=== PATIENT | male | born 1965 | race Caucasian/White ===

== ENCOUNTER 2024-08-11 15:45 | Outpatient (AMB) | payer OTHER, SELFPAY ==
--- NOTE | 2024-08-11 15:57 | MHC.PC.OV ---
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 Wants to discuss going back on sertraline 50mg. Hasn't been on medication since 2018. Respiratory Therapist Assistant Required: No Allergies No Known Allergies Allergy (Verified 08/11/24 16:01) Tobacco use date assessed: 08/11/24 Dental Screening Dental Screen Date: 08/11/24 Did you have a dental visit in the last 12 months?: Yes Did you have a dental problem in the last 6 months where you did not have access to dental care?: No Was dental information given to patient?: Patient has dentist HPI HPI Comments History of Present Illness Details This is a 58-year-old male with a past medical history of hypertension and obesity presenting to [facility] care. He is an ER follow up. Patient was seen at [facility] 07/10/2024 after he woke up feeling weak and having brain fog. He also reported right foot numbness on the sole which resolved. His blood pressure was 174/92. He has been treated for hypertension in the past but was not on any medications at the time. Diagnostics included negative COVID/flu/RSV swab, glucose mildly elevated at 134, ALT elevated at 47, AST normal at 37, urine negative for infection, negative troponin, positive urine cannabinoid screen, additional U tox results negative, normal electrolytes, CTA head and neck demonstrating no acute pathology and mild cervical spondylosis, negative CT head, negative chest x-ray and nonischemic EKG. Patient was discharged home after symptoms improved. He is now on lisinopril 40 mg. His blood pressure is normal today. He has been monitoring with a home blood pressure cuff which shows systolic reading is about 10 points higher than our cuff. He denies side effects on the medication. He quit smoking 10 years ago. He has decreasing sodium in his diet and caffeine. He wishes to restart Zoloft which he takes for anxiety. He has a history of panic attacks. Says he initially presented with dizzy spells. He denies current dizzy spells. He is under some stress with his job. He had no side effects on the medication. He does not feel depressed. Denies SI or HI. ROS: Constitutional: No unexplained weight loss, fever, chills, fatigue or night sweats. Eyes: No vision changes, blurry vision, double vision, eye pain, eye redness, eye discharge. ENT: No hearing loss, sneezing, congestion, runny nose or sore throat. Respiratory: No shortness of breath, cough or sputum production. Cardiovascular: No chest pain, chest pressure or chest discomfort. No palpitations or pedal edema. Gastrointestinal: No anorexia, nausea, vomiting or diarrhea. No abdominal pain or blood in stool. Genitourinary: No dysuria, hematuria, urinary frequency. Neurologic: No headache, dizziness, syncope, unilateral weakness, ataxia, numbness or tingling in the extremities. Hematologic/Lymphatics: No bleeding or bruising Skin: No rash. Endocrine: No cold or heat intolerance. No polyuria or polydipsia. Psychiatric: See HPI Physical exam: Constitutional: Alert, in no distress. Eyes: Pupils are equal, round and reactive to light. Extraocular muscles intact. Neck: Supple, Full range of motion. No lymphadenopathy. No palpable thyroid masses. Respiratory: Clear to auscultation. Cardiovascular: S1 S2 regular. No murmurs. . Neurologic: No focal neurological deficits. Extremities: Warm and well perfused. No clubbing, cyanosis or edema. 3+ peripheral pulses bilaterally. 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 1. Little interest or pleasure in doing things: not at all 2. Feeling down, depressed, or hopeless: not at all 3. Trouble falling or staying asleep, or sleeping too much: several days 4. Feeling tired or having little energy: several days 5. Poor appetite or overeating: not at all 6. Feeling bad about yourself - or that you are a failure or have let yourself or your family down: not at all 7. Trouble concentrating on things, such as reading the newspaper or watching television: not at all 8. Moving or speaking so slowly that other people could have noticed. Or the opposite - being so fidgety or restless that you have been moving around a lot more than usual: not at all 9. Thoughts that you would be better off or of hurting yourself in some way: not at all Total score: 2 Depression Screening Interpretation: Negative Depression Screening Done: Yes Source: Developed by Drs. Alex Vasquez, Keira Chacon, Cody Burks and colleagues, with an educational félix from [employer]. Thrive Questionnaire I am a: Patient What is your living situation today?: I have a steady place to live Within the past 12 months, did the food you bought not last and you didn't have the money to get more?: Never true Within the past 12 months, did you worry whether your food would run out before you got money to buy more?: Never true Do you have trouble paying for medicines?: No Do you have trouble getting transportation to medical appointments?: No Do you have trouble paying your heating and electricity bill?: No Do you have trouble taking care of your child, family member or friend?: No Do you have trouble with day-to-day activities such as bathing, preparing meals, shopping, managing finances, etc.?: No Are you currently unemployed and looking for a job?: No Are you interested in more education?: No Please select the resources that you would like help with: None Currently or been in a relationship where the following occur: No concerns reported THRIVE Score: 0 AUDIT C Alcohol Use Questionnaire (AUDIT-C) 1. How often do you have a drink containing alcohol?: 4 or more times a week 2. How many drinks containing alcohol do you have on a typical day when you are drinking?: 3 or 4 3. How often do you have six or more drinks on one occasion?: Less than monthly Total Score: 6 SALIMA-7 AMB Questionnaire SALIMA-7 Feeling nervous, anxious, or on edge: 1 = Several days Not being able to stop or control worryin = Several days Worrying too much about different things: 1 = Several days Trouble relaxin = Not at all Being so restless that it is hard to sit still: 0 = Not at all Becoming easily annoyed or irritable: 1 = Several days Feeling afraid as if something awful might happen: 0 = Not at all Total SALIMA-7 score (0-4 normal; 5-9 mild; 10-14 moderate; 15-21 severe): 4 Source: Developed by Drs. Alex Vasquez, Keira Chacon, Cody Burks and colleagues, with an educational félix from [employer]. Physical exam (Primary Care) Vital Signs: Last Vital Signs Pulse 70 08/11/24 16:09 BP 128/78 08/11/24 16:09 Pulse Ox 96 08/11/24 16:09 Oxygen Delivery Method Room Air 08/11/24 16:09 BMI result Body Mass Index 29.7 Tobacco/Smoking Status: Tobacco use Status Tobacco use date assessed 08/11/24 08/11/24 16:17 Patient Tobacco Use Status Former Tobacco user 08/11/24 16:17 Tobacco use type Cigarette 08/11/24 16:17 e-Cigarette/Vaping Use Never Used 08/11/24 16:17 PHQ-9: PHQ-9 Score PHQ-9: Total score 2 08/11/24 16:41 Depression Screening Interpretation: Negative Currently or been in a relationship where the following occur: No concerns reported Coding Level of Care Code New Pt Level 5 (91507) Complex EM visit Add On G2211 Diagnoses Essential hypertension I10 Anxiety F41.9 IFG (impaired fasting glucose) R73.01 Elevated liver enzymes R74.8 Time Spent (min) 60 Comment Reviewing records, completing documentation, direct patient care Assessment & Plan Assessment & Plan (1) Essential hypertension: Code(s): I10 - Essential (primary) hypertension Category: Medical Plan: Patient seen for episode of brain fog and weakness at ED. ER workup reassuring. He was found to be hypertensive. Now controlled. Continue lisinopril 40 mg. Recommended low-sodium diet, avoidance of caffeine and exercise to promote weight loss. (2) Anxiety: Code(s): F41.9 - Anxiety disorder, unspecified Category: Medical Plan: Declines referral to Psychology. Restart Zoloft 25 mg for the 1st week then increase to 50 mg. Black box warning, administration and side effects reviewed. (3) IFG (impaired fasting glucose): Code(s): R73.01 - Impaired fasting glucose Category: Medical Plan: Check hemoglobin A1c. Recommended low carb, low sugar diet and encouraged weight loss. (4) Elevated liver enzymes: Code(s): R74.8 - Abnormal levels of other serum enzymes Category: Medical Plan: Avoid alcohol. Follow low-cholesterol diet. Recheck liver enzymes. Plan Follow up in 6 weeks for anxiety medication check in annual physical exam. He will have fasting lab orders completed prior to this. He was instructed to call once he has the orders done at [facility] so we can request the records. Orders: Orders Prostate Specific Antigen 08/11/24 I10 - Essential (primary) hypertension, R73.01 - Impaired fasting glucose, R74.8 - Abnormal levels of other serum enzymes, Z12.5 - Encounter for screening for malignant neoplasm of prostate TSH reflex Free T4 08/11/24 I10 - Essential (primary) hypertension, R73.01 - Impaired fasting glucose, R74.8 - Abnormal levels of other serum enzymes Hemoglobin A1c 08/11/24 E11.9 - Type 2 diabetes mellitus without complications, I10 - Essential (primary) hypertension, R73.01 - Impaired fasting glucose, R74.8 - Abnormal levels of other serum enzymes Lipid Panel 08/11/24 I10 - Essential (primary) hypertension, R73.01 - Impaired fasting glucose, R74.8 - Abnormal levels of other serum enzymes Comprehensive Met. Panel 08/11/24 I10 - Essential (primary) hypertension, R73.01 - Impaired fasting glucose, R74.8 - Abnormal levels of other serum enzymes Complete Blood Count no Diff 08/11/24 I10 - Essential (primary) hypertension, R73.01 - Impaired fasting glucose, R74.8 - Abnormal levels of other serum enzymes Medications: New sertraline (Zoloft) 50 mg PO DAILY 90 tabs 3RF lisinopril 40 mg PO DAILY 90 tabs 3RF Patient Instructions: Start Zoloft - take 1/2 tablet for the first week and then increase to 1 tab daily. Continue Lisinopril 40 mg daily. Please have fasting labs done, Bring orders with you to [facility].
[2024-08-11 16:09] VITALS: BP 128/78; PULSE 70; O2SAT 96; BMI 29.7
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
== END 2024-08-11 16:53 | disposition home or self-care (01) ==
PROVIDERS: PCP Physician Assistant Medical; Visit Provider Physician Assistant Medical
DX: I10 Essential (primary) hypertension (principal); F41.9 Anxiety disorder, unspecified; R73.01 Impaired fasting glucose; R74.8 Abnormal levels of other serum enzymes

== ENCOUNTER 2024-11-13 11:51 | Outpatient (AMB) | payer OTHER, SELFPAY ==
--- NOTE | 2024-11-13 11:56 | MHC.PC.OV ---
Vital Signs 11/13/24 12:05 Height 5 ft 8 in Weight 185 lb BMI 28.1 BP 106/68 Blood Pressure Location Rt brachial Position Sitting Respiration 14 Pulse 72 Pulse Source Pulse Oximeter Temp 98.4 F Temp Source Temporal Artery Scan Pulse Oximetry (%) 95 Oxygen Delivery Method Room Air Intake Visit Reasons: cpe Intake Note: Derick presents in the office today for his annual physical. Allergies Seasonal Allergies Allergy (Mild, Verified 11/13/24 11:59) Runny nose and sinus congestion Tobacco use date assessed: 11/13/24 Dental Screening Dental Screen Date: 11/13/24 Did you have a dental visit in the last 12 months?: Yes Did you have a dental problem in the last 6 months where you did not have access to dental care?: No Was dental information given to patient?: Patient has dentist HPI HPI Comments History of Present Illness Details This is a 58-year-old male with a past medical history of hypertension and obesity presenting for a physical exam. Prediabetes-recent diagnosis. Hemoglobin A1c 5.9%. Since his last visit the patient already decrease carbohydrates and alcohol, and he has lost weight. He denies family history of type 2 diabetes. Brlbuwxewcpw-aoyf-fbziptdeyo on lisinopril 40 mg daily. Quit smoking more than 5 years ago. ASCVD risk score 4.3% based on recent labs and vitals today. Lugrkjb-yloe-ltztwojwhz on sertraline 50 mg daily. LFTs normalized since ER visit. Colonoscopy: declined. Never had one. Agreeable to Cologuard. UTD and eye and dental exams. He did not receive the flu vaccine. Recommended Tdap, Shingrix and pneumonia vaccine. Patient deferred today, but he asked that I remind him at his next visit. ROS: Constitutional: No unexplained weight loss, fever, chills, fatigue or night sweats. Eyes: No vision changes, blurry vision, double vision, eye pain, eye redness, eye discharge. ENT: No hearing loss, sneezing, congestion, runny nose or sore throat. Respiratory: No shortness of breath, cough or sputum production. Cardiovascular: No chest pain, chest pressure or chest discomfort. No palpitations or pedal edema. Gastrointestinal: No anorexia, nausea, vomiting or diarrhea. No abdominal pain or blood in stool. Genitourinary: No dysuria, hematuria, urinary frequency. Denies testicular pain, masses, urethral discharge. Neurologic: No headache, dizziness, syncope, unilateral weakness, ataxia, numbness or tingling in the extremities. Musculoskeletal: No muscle pain, back pain, joint pain or swelling. Hematologic/Lymphatics: No bleeding or bruising. No painful lymph nodes. Skin: No rash or itching. Endocrine: No cold or heat intolerance. No polyuria or polydipsia. Psychiatric: No depression.. No SI/HI. see HPI Physical exam: Constitutional: Alert, in no distress. Head: Normocephalic. Eyes: Pupils are equal, round and reactive to light. Extraocular muscles intact. Ear, Nose and Throat: Canals clear. TMs normal. Normal nasal mucosa. No nasal discharge. No oral lesions. Neck: Supple, Full range of motion. No lymphadenopathy. No palpable thyroid masses. Respiratory: Clear to auscultation. Cardiovascular: S1 S2 regular. No murmurs. No carotid bruits. Gastrointestinal: Abdomen soft, non-tender, non-distended. Normal bowel sounds. No palpable masses. Genitourinary: Patient declined exam. Neurologic: No focal neurological deficits. Symmetric patellar reflexes. Moves all extremities spontaneously. Sensation intact bilaterally. Skin: No rashes Musculoskeletal: No gross deformities. Normal range of motion. Extremities: Warm and well perfused. No clubbing, cyanosis or edema. Intact upper and lower extremity peripheral pulses. Psychiatric: Normal mood and affect [facility] Medical History (Updated 11/13/24 @ 13:42 by PEGGY Tilley) Routine physical examination Prediabetes Panic attack Anxiety IFG (impaired fasting glucose) Elevated liver enzymes Essential hypertension Family History (Updated 11/13/24 @ 12:00 by Christel Motley MA) Brother FHx: mental illness Other Substance abuse Social History (Updated 11/13/24 @ 12:01 by Christel Motley MA) Housing: House (two family house with brother) Alcohol intake: current Patient Tobacco Use Status: Former Tobacco user Tobacco use type: Cigarette Cigarettes Per Day: 3 Years Smoked: 46 e-Cigarette/Vaping Use: Never Used Second Hand Smoke Exposure: No Substance Use Type: Marijuana service: Yes Current occupational status: employed 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 1. Little interest or pleasure in doing things: not at all 2. Feeling down, depressed, or hopeless: not at all 3. Trouble falling or staying asleep, or sleeping too much: several days 4. Feeling tired or having little energy: not at all 5. Poor appetite or overeating: not at all 6. Feeling bad about yourself - or that you are a failure or have let yourself or your family down: not at all 7. Trouble concentrating on things, such as reading the newspaper or watching television: not at all 8. Moving or speaking so slowly that other people could have noticed. Or the opposite - being so fidgety or restless that you have been moving around a lot more than usual: not at all 9. Thoughts that you would be better off or of hurting yourself in some way: not at all Total score: 1 Depression Screening Interpretation: Negative Depression Screening Done: Yes 28514 - PHQ-9 Billing: Patient declined-do not bill Source: Developed by Drs. Alex Vasquez, Keira Chacon, Cody Burks and colleagues, with an educational félix from [employer]. Thrive Questionnaire Date Thrive assessed: 11/13/24 I am a: Patient What is your living situation today?: I have a steady place to live Within the past 12 months, did the food you bought not last and you didn't have the money to get more?: Never true Within the past 12 months, did you worry whether your food would run out before you got money to buy more?: Never true Do you have trouble paying for medicines?: No Do you have trouble getting transportation to medical appointments?: No Do you have trouble paying your heating and electricity bill?: No Do you have trouble taking care of your child, family member or friend?: No Do you have trouble with day-to-day activities such as bathing, preparing meals, shopping, managing finances, etc.?: No Are you currently unemployed and looking for a job?: No Are you interested in more education?: No Please select the resources that you would like help with: None Currently or been in a relationship where the following occur: No concerns reported THRIVE Score: 0 AUDIT C Alcohol Use Questionnaire (AUDIT-C) 1. How often do you have a drink containing alcohol?: 2-4 times a month 2. How many drinks containing alcohol do you have on a typical day when you are drinking?: 1 or 2 3. How often do you have six or more drinks on one occasion?: Never Total Score: 2 Score Reviewed/Action Taken: No SALIMA-7 AMB Questionnaire SALIMA-7 Date SALIMA - 7 assessed: 11/13/24 Feeling nervous, anxious, or on edge: 0 = Not at all Not being able to stop or control worryin = Not at all Worrying too much about different things: 1 = Several days Trouble relaxin = Not at all Being so restless that it is hard to sit still: 0 = Not at all Becoming easily annoyed or irritable: 1 = Several days Feeling afraid as if something awful might happen: 0 = Not at all Total SALIMA-7 score (0-4 normal; 5-9 mild; 10-14 moderate; 15-21 severe): 2 Source: Developed by Drs. Alex Vasquez, Keira Chacon, Cody Burks and colleagues, with an educational félix from [employer]. SALIMA-7 Assessment Billing SALIMA-7 Assessment Tool: SALIMA-7 Assessment 09340 ACT Questionnaire In the past 4 weeks, how much of the time did your asthma keep you from getting as much done at work, school or at home?: None of the time Score: 5 Physical exam (Primary Care) Vital Signs: Last Vital Signs Temp 98.4 F 11/13/24 12:05 Pulse 72 11/13/24 12:05 Resp 14 11/13/24 12:05 BP 106/68 11/13/24 12:05 Pulse Ox 95 11/13/24 12:05 Oxygen Delivery Method Room Air 11/13/24 12:05 BMI result Body Mass Index 28.1 Tobacco/Smoking Status: Tobacco use Status Tobacco use date assessed 11/13/24 11/13/24 11:58 Patient Tobacco Use Status Former Tobacco user 11/13/24 12:01 Tobacco use type Cigarette 11/13/24 12:01 e-Cigarette/Vaping Use Never Used 11/13/24 12:01 PHQ-9: PHQ-9 Score PHQ-9: Total score 1 11/13/24 12:08 Depression Screening Interpretation: Negative Thrive Assessment: Date of Thrive Assessment Date Thrive assessed 11/13/24 11/13/24 12:08 Currently or been in a relationship where the following occur: No concerns reported Coding Level of Care Code Est Pt Prev Care 40-64y(28961) Diagnoses Routine physical examination Z00.00 Essential hypertension I10 Anxiety F41.9 Prediabetes R73.03 Additional Codes SALIMA-7 Assessment Billing - SALIMA-7 Assessment Tool: SALIMA-7 Assessment 85996 ([id number]) Assessment & Plan Assessment & Plan (1) Routine physical examination: Code(s): Z00.00 - Encounter for general adult medical examination without abnormal findings Category: Medical Plan: Patient is seen today for a routine physical. As part of this visit we reviewed the following issues, which are considered and essential part of preventative health in this age group: - Screening for colon cancer - Nutritional and exercise counseling - Counseling of injury prevention including fire prevention, smoke alarms and seat belt usage - Screening for depression - Prevention of and/or testing for infectious diseases - Education about skin cancer - Recommendations about immunizations - Recommendation of an eye exam - Screening for substance abuse (2) Essential hypertension: Code(s): I10 - Essential (primary) hypertension Category: Medical Plan: Well-controlled. Continue lisinopril 40 mg daily. Recommended low-salt diet and regular exercise. (3) Anxiety: Code(s): F41.9 - Anxiety disorder, unspecified Category: Medical Plan: Stable. Continue sertraline 50 mg daily. (4) Prediabetes: Code(s): R73.03 - Prediabetes Category: Medical Plan: Recommended low carbohydrate diet. Avoid sugars. Discussed portion sizes. He is exercising every day. He walks 4-5 miles. Continue avoidance of alcohol. Recheck hemoglobin A1c in 6 months. Plan Follow up in 6 months. Patient was given printed orders to have done prior to that appointment.
[2024-11-13 12:05] VITALS: BP 106/68; PULSE 72; RESP 14; TEMP 36.9; O2SAT 95; BMI 28.1
--- OUTSIDE RECORDS SUMMARY | 2024-11-13 14:49 | XMS_ITS | Data Portability ---
Author Organization [facility] Address [address] [place] [id number] Care Team Providers Care Bottom Cager Name Role Phone TIAN PORTILLO Primary Care Provider Assessment No assessment recorded. Plan of Treatment Reminders Order Date Submit Date Provider Last Modified By Organization Details Last Modified Time Details Appointments None recorde d. Lab STI panel 023 11/15/19 23 [email or web address] [facility], [address] [place] [address], [place], [address], 3 17:30:48 Referral None recorde d. Procedures None recorde d. Surgeries None recorde d. Imaging XR, hand, 3 or more view 023 11/15/19 23 [facility], [address] [place] [address], [address], 3 19:00:02 Medication Orders None recorde d. Patient TargetsNo targets recorded. Patient Instructions Encounter Date Encounter Id Patient Instructions Last Modified By Organization Details Last Modified Time 11/14/2022 [id number] hand sprain: car e instructions [email or web address] Not available 11/14/2022 17:36:01 hand bruises: care instructions [email or web address] Not available 11/14/2022 17:36:01 wrist sprain: care instructions [email or web address] Not available 11/14/2022 17:36:01 shoulder sprain: care instructions [email or web address] Not available 11/14/2022 17:36:01 sexually transmitted disease education [email or web address] Not available 11/14/2022 17:36:01 Your xray appear [...] Emergency Medical evaluation for any worsening symptoms. [email or web address] Not available 11/14/2022 17:36:00 Reason for Referral None Reported. Results Created Date Observation Date Name Description Value Unit Range Abnormal Flag Note LastModifiedBy Organization Detail LastModifiedTime 11/15/1911/17/2022 CT, NG, TRICH VAG BY MARCOS chlamydia by MARCOS Negati ve negati ve Not Available [facility] ([facility]) [address] [place], [address], 11/17/2022 20:06:36 11/15/19 23 11/17/2022 CT, NG, TRICH VAG BY MARCOS gonococcus by MARCOS Negati ve negati ve Not Available [facility] ([facility]) [address] [place], [address], 11/17/2022 20:06:36 11/15/19 23 11/17/2022 CT, NG, TRICH VAG BY MARCOS trich vag by MARCOS Negati ve negati ve Not Available [facility] ([facility]) [address] [place], [address], 11/17/2022 20:06:36 11/15/19 23 11/16/2022 CT NG M GENIT ALIUM MARCOS, URINE mycoplasma genitalium MARCOS NEGATI VE negati ve Not Available [facility] ([facility]) [address] [place], [address], 11/17/2022 20:06:37 11/15/19 23 11/17/2022 CT NG M GENIT ALIUM MARCOS, URINE chlamydia trachomatis, MARCOS NEGATI VE negati ve Not Available [facility] ([facility]) [address] [facility], [place], [address], 11/17/2022 20:06:37 11/15/19 23 11/17/2022 CT NG M GENIT ALIUM MARCOS, URINE neisseria gonorrhoeae, MARCOS NEGATI VE negati ve Not Available [facility] ([facility]) [address] [facility], [place], [address], 11/17/2022 20:06:37 11/15/19 23 11/14/2022 XR, hand, 3 or more view No observ ation record ed. [email or web address] [facility] [address] [place], [address], 11/14/2022 19:18:57 Result Notes None recorded. Problems No Known Problems Procedures Surgical History None recorded. Imaging Results Imaging Date Name Status LastModified by Organiz ation Details LastModified Time 11/14/2022 XR, hand, 3 or more view completed [email or web address] [facility] [address] [place], [address], 11/14/2022 19:18:57 Procedure Notes None recorded. Medical Equipment None Reported. Allergies Allergen ID Allergen Name Allergen Category Reaction Reaction Severity Criticality Documentation Date Start Date Code Code System Note Provider Name and Address Organization Details Recorded Time 554889 cobalt environme nt Not available Not available Not available 11/14/2022 19210 00 RxNorm PEGGY Montes De [facility] 15:21:01 Medications Name Sig Start Date Stop Date Status Note LastModified by Organization Details LastModified Time Zoloft active Not Available Not Availa ble Not Available Seroquel active Not Available Not Avai lable Not Available BuSpar active Not Available Not Availa ble Not Available Vitals Date Recorded Body height Body mass index (BMI) Body weight Pain severity - 0-10 verbal numeric rating [Score] - Reported Respiratory rate Body temperature Oxygen saturation Oxygen saturation in Arterial blood by Pulse oximetry Heart rate Systolic blood pressure Diastolic blood pressure Provider Name and Address Organization Details Last Updated DateTime 167.64 cm 26.5 kg/m2 91412.1 5 g 8 18 /min 97.9 [degF] 96 % 96 % 63 /min 128 mm[Hg] 73 mm[Hg] Makenzie Reza [facility] 15:25:30 Social History Question Answer Notes [...] Time Tdap 04/07/2019 completed [facility]Y [facility] 11/14/2022 15:17:45 Past Encounters Encounter ID Performer Location Encounter Start Date Encounter Closed Date Diagnosis/Indication Diagnosis SNOMED-CT Code Diagnosis ICD10 Code Diagnosis Note [id number] [address] [address] 09/09/2017 08:21:36 09/09/2017 09:04:03 [id number] [facility] [address] 04/03/2017 13:02:59 04/03/2017 14:24:24 [id number] [address] [address] 11/14/2019 16:20:50 11/14/2019 17:01:52 [id number] [address] [address] 09/25/2016 15:54:02 09/25/2016 17:40:28 [id number] Lynne Triana MD [address] [address] [place] [address] 11/14/2022 13:39:54 11/14/2022 17:44:37 Pain of left hand [id number] 82799 M79.642 Venereal d isease screening [id number] Z11.3 Health Concerns Section Related Observation LastModified by Organization Detai ls LastModified Time None Recorded Concern Status LastModified by Organization Details LastModified Time None Recorded Advance Directives Directive None Recorded Payers Encounter Date Sequence Insurance Name Policy Number Policy Andujar Covered Member ID Andujar Member ID Guarantor Name 11/14/2022 1 [facility] Brodie Randall [id number] Brodie Randall Notes Date Note Type Note Provider [...] has no symptoms. Lynne Triana MD [address] [facility] [place], [address], [place] - [facility] 11/14/2022 17:40:41
== END 2024-11-13 12:54 | disposition home or self-care (01) ==
LOC: HO.HMCFM 11:52
PROVIDERS: PCP Physician Assistant Medical; Visit Provider Physician Assistant Medical
DX: Z00.00 Encounter for general adult medical examination without abnormal findings (principal); I10 Essential (primary) hypertension; F41.9 Anxiety disorder, unspecified; R73.03 Prediabetes

== ENCOUNTER → 2024-11-13 11:51 | Outpatient (BNVA) | payer OTHER, SELFPAY | PROVIDERS: PCP Physician Assistant Medical; Visit Provider Physician Assistant Medical | DX: Z00.00 Encounter for general adult medical examination without abnormal findings (principal); I10 Essential (primary) hypertension; E66.9 Obesity, unspecified; R73.03 Prediabetes; F41.9 Anxiety disorder, unspecified; Z68.28 Body mass index [BMI] 28.0-28.9, adult | CPT/HCPCS: 96127 ==

== ENCOUNTER 2025-05-04 07:50 | Outpatient (REF) | payer OTHER, SELFPAY ==
[2025-05-04 11:34] LABS: Hematocrit 45.1 % (42.0-52.0); Hemoglobin 15.5 g/dl (14.0-18.0); Mean Corpuscular HGB Conc 34.4 g/dl (31.0-36.0); Mean Corpuscular Hemoglobin 34.3 pg (27.0-33.0); Mean Corpuscular Volume 99.8 fL (80.0-98.0); NRBC Abs Auto 0.000 X10*3/uL (0.0-0.012); NRBC Pct Auto 0.0 /100WBC (0.0-0.2); Platelet Count 224 X10*3/uL (160-400); Red Blood Count 4.52 X10*6/uL (4.60-5.80); White Blood Count 6.7 X10*3/uL (4.8-10.8)
[2025-05-04 11:53] LABS: Hemoglobin A1C 148.6165 umol/L
[2025-05-04 12:04] LABS: Alanine Aminotransferase 42 U/L (0-40); Albumin Level 4.8 g/dL (3.5-5.0); Alkaline Phosphatase 50 U/L (39-117); Anion Gap 11 (12-20); Aspartate Amino Transferase 33 U/L (5-37); Blood Urea Nitrogen 14 mg/dL (9-16); Calcium 9.9 mg/dL (8.4-10.2); Carbon Dioxide 28 mmol/L (22-29); Chloride 102 mmol/L (96-108); Cholesterol 264 mg/dL (<200); Estimated Glomerular Filt Rate > 60; HDL Cholesterol 80 mg/dL (>40); Potassium 4.6 mmol/L (3.3-5.1); Sodium 136 mmol/L (135-145); Total Protein 7.5 g/dL (6.5-8.0); Triglycerides 76 mg/dL (<150)
[2025-05-04 12:08] LABS: Prostate Specific Antigen 1.55 ng/mL (<0.05-4.0)
== END 2025-05-04 07:51 | disposition home or self-care (01) ==
LOC: HO.WFDLDS 07:50
PROVIDERS: Visit Provider Physician Assistant Medical
DX: Z00.00 Encounter for general adult medical examination without abnormal findings (principal); Z12.5 Encounter for screening for malignant neoplasm of prostate; Z13.1 Encounter for screening for diabetes mellitus; Z13.6 Encounter for screening for cardiovascular disorders; Z13.29 Encounter for screening for other suspected endocrine disorder
CPT/HCPCS: 36415; 80053; 80061; 83036; 84153; 84443; 85027

== ENCOUNTER 2025-05-18 07:32 | Outpatient (REF) | payer OTHER, SELFPAY ==
[2025-05-18 11:24] LABS: Iron 113 mcg/dL (45-160); Percent Iron Saturation 42 % (15-50); Total Iron Binding Capacity 269 mcg/dL (228-428); Unsaturated Iron Binding 156 ug/dL
[2025-05-18 11:50] LABS: Hepatitis A Antibody IgM 0.21 Index (0-0.79); ~Hepatitis A Antibody IgM Nonreactive (Nonreactive)
[2025-05-18 11:55] LABS: HBS Num1 0.71 mIU/mL (0-7.99); HBc Num1 0.05 S/CO (0.00-0.79); HBsAGNum1 0.35 S/CO (0.00-0.99); Hepatitis A Antibody IgM 0.18 Index (0-0.79); Hepatitis B Surface Antigen Negative (Negative); ~HepC Num1 0.06 S/CO (0.00-0.79); ~Hepatitis A Antibody IgM Nonreactive (Nonreactive); ~Hepatitis B Surface Antibody NONREACTIVE (Nonreactive); ~Hepatitis C Antibody Nonreactive (Nonreactive)
[2025-05-18 12:00] LABS: Folate 11.6 ng/mL (> or = 4.0); Vitamin B12 395 pg/mL (200-900)
== END 2025-05-18 07:33 | disposition home or self-care (01) ==
LOC: HO.WFDLDS 07:32
PROVIDERS: Visit Provider Physician Assistant Medical
DX: R74.8 Abnormal levels of other serum enzymes (principal); D64.9 Anemia, unspecified
CPT/HCPCS: 36415; 82607; 82746; 83540; 86704; 86706; 86709; 86803; 87340

== ENCOUNTER 2025-05-28 09:55 | Outpatient (AMB) | payer OTHER, SELFPAY ==
--- NOTE | 2025-05-28 10:07 | A.OFFPC_ITS ---
Vital Signs 05/28/25 10:10 Height 5 ft 8 in Weight 194 lb BMI 29.5 BP 106/68 Blood Pressure Location Rt brachial Position Sitting Respiration 14 Pulse 70 Pulse Source Pulse Oximeter Temp 97.1 F Temp Source Temporal Artery Scan Pulse Oximetry (%) 98 Oxygen Delivery Method Room Air Intake Visit Reasons: HTN follow up Intake Note: Derick presents in the office today for a follow up to hypertension. Allergies Seasonal Allergies Allergy (Mild, Verified 05/28/25 10:09) Runny nose and sinus congestion Medication List - Last Reconciled 05/28/25 by PEGGY Tilley lisinopril 30 mg PO DAILY sertraline (Zoloft) 50 mg PO DAILY vitamins A,C,E-jzcs-sojqae 4,296 mcg-226 mg-90 mg (PreserVision AREDS) 1 cap PO BID Tobacco use date assessed: 05/28/25 Dental Screening Dental Screen Date: 05/28/25 Did you have a dental visit in the last 12 months?: Yes Did you have a dental problem in the last 6 months where you did not have access to dental care?: No Was dental information given to patient?: Patient has dentist HPI HPI Comments History of Present Illness Details This is a 59-year-old male with a past medical history of hypertension and obesity presenting for follow up. Prediabetes-recent hemoglobin A1c 5.6%. Denies family history of type 2 diabet es. Hypertension-quit smoking more than 5 years ago. Currently on lisinopril 40 mg daily. Blood pressure running low and he is having some dizziness when he stands up quickly. Hyperlipidemia-denies family history of cardiovascular disease. Denies chest pain and shortness of breath. Mild elevation of LFT and mild macrocytosis. 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 He has been eating and drinking like he is on vacation. He was having 5 years per night. Hepatitis a, B and C screening negative. Normal B12, folate and iron. Liver ultrasound ordered. He would like to wait to do it until he gets new insurance. Moppyde-yghs-rpahbbnktv on sertraline 50 mg daily. Colon cancer screening: Negative Cologuard test 2023. Tdap administered today. Declines flu vaccine. ROS: Constitutional: No unexplained weight loss, fever, chills, fatigue or night sweats. Eyes: No vision changes Cardiovascular: No chest pain, chest pressure or chest discomfort. No pa lpitations or pedal edema. Gastrointestinal: No anorexia, nausea, vomiting or diarrhea. No abdominal pain or blood in stool. Neurologic: No headache, dizziness, syncope, unilateral weakness, ataxia, n umbness or tingling in the extremities. Skin: No rash or itching. Endocrine: No cold or heat intolerance. No polyuria or polydipsia. Physical exam: Constitutional: Alert, in no distress. Neck: Supple, Full range of motion. No lymphadenopathy. No palpable thyroid masses. Respiratory: Clear to auscultation. Cardiovascular: S1 S2 regular. No murmurs. No carotid bruits. Gastrointestinal: Abdomen soft, non-tender, non-distended. Normal bowel sounds. No palpable masses. Psychiatric: Normal mood and affect [facility] Medical History (Updated 05/28/25 @ 13:44 by PEGGY Tilley) Macrocytosis Hyperlipidemia Elevated liver enzymes Routine physical examination Prediabetes Panic attack Anxiety IFG (impaired fasting glucose) Essential hypertension Family History Brother FHx: mental illness Other Substance abuse Social History (Updated 05/28/25 @ 10:10 by Christel Motley CMA) Housing: House (two family house with brother) Alcohol intake: current Patient Tobacco Use Status: Former Tobacco user Tobacco use type: Cigarette Cigarettes Per Day: 3 Years Smoked: 46 e-Cigarette/Vaping Use: Never Used Second Hand Smoke Exposure: No Substance Use Type: Marijuana service: Yes Current occupational status: employed 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 Current occupational exposures/hazards: No Cognitive needs: No Hearing needs: No Vision needs: Yes (glasses) Questionnaire Thrive Questionnaire Date Thrive assessed: 08/11/24 I am a: Patient What is your living situation today?: I have a steady place to live Within the past 12 months, did the food you bought not last and you didn't have the money to get more?: Never true Within the past 12 months, did you worry whether your food would run out before you got money to buy more?: Never true Do you have trouble paying for medicines?: No Do you have trouble getting transportation to medical appointments?: No Do you have trouble paying your heating and electricity bill?: No Do you have trouble taking care of your child, family member or friend?: No Do you have trouble with day-to-day activities such as bathing, preparing meals, shopping, managing finances, etc.?: No Are you currently unemployed and looking for a job?: No Are you interested in more education?: No Please select the resources that you would like help with: None Currently or been in a relationship where the following occur: No concerns reported THRIVE Score: 0 SALIMA-7 AMB Questionnaire SALIMA-7 Date SALIMA - 7 assessed: 11/13/24 Source: Developed by Drs. Alex Vasquez, Keira Chacon, Cody Burks and colleagues, with an educational félix from [employer]. Physical exam (Primary Care) Vital Signs: Last Vital Signs Temp 97.1 F 05/28/25 10:10 Pulse 70 05/28/25 10:10 Resp 14 05/28/25 10:10 BP 106/68 05/28/25 10:10 Pulse Ox 98 05/28/25 10:10 Oxygen Delivery Method Room Air 05/28/25 10:10 BMI result Body Mass Index 29.5 Tobacco/Smoking Status: Tobacco use Status Tobacco use date assessed 05/28/25 05/28/25 10:13 Patient Tobacco Use Status Former Tobacco user 05/28/25 10:10 Tobacco use type Cigarette 05/28/25 10:10 e-Cigarette/Vaping Use Never Used 05/28/25 10:10 Thrive Assessment: Date of Thrive Assessment Date Thrive assessed 08/11/24 05/28/25 10:09 Currently or been in a relationship where the following occur: No concerns reported Immunizations Boostrix Tdap 2.5 Lf unit-8 mcg-5 Lf/0.5 mL intramuscular syringe Performing Provider: PEGGY Tilley Performing Location: [facility] Administered by: Christel Motley CMA on 05/28/25 10:59 Dose Route Admin Location Dispensed Lot Number Expiration Date [facility] Natural Resources Faculty Member 0.5 mL IM Left Deltoid 0.5 mL [id number] 06/26/27 47000-065-20 [email or web address] Total Dispensed Waste 0.5 mL 0 % VIS Given Date VIS Provided VIS Publication Date 05/28/25 Single Vaccine 21 Eligibility Eligibility Date Funding Source Not [facility] Eligible 05/28/25 Private Coding Level of Care Code Est Pt Level 4 (38676) Complex EM visit Add On G2211 Diagnoses Essential hypertension I10 Pure hypercholesterolemia E78.00 Hyperlipidemia type: pure hypercholesterolemia Prediabetes R73.03 Elevated liver enzymes R74.8 Macrocytosis D75.89 Assessment & Plan Assessment & Plan (1) Essential hypertension: Code(s): I10 - Essential (primary) hypertension Category: Medical (2) Hyperlipidemia: Code(s): E78.5 - Hyperlipidemia, unspecified Category: Medical Qualifiers: Hyperlipidemia type: pure hypercholesterolemia Qualified Code(s): E78.00 - Pure hypercholesterolemia, unspecified (3) Prediabetes: Code(s): R73.03 - Prediabetes Category: Medical (4) Elevated liver enzymes: Code(s): R74.8 - Abnormal levels of other serum enzymes Category: Medical (5) Macrocytosis: Code(s): D75.89 - Other specified diseases of blood and blood-forming organs Category: Medical Plan I suspect the changes in his labs might be secondary to increased alcohol consumption and dietary indiscretion since losing his job. He has already started to change this and cut back on his alcohol. I do recommend getting the ultrasound done, but he wants to wait until he has new insurance. Discussed starting cholesterol medication versus lifestyle modification. He would like to try lifestyle modification initially. Recheck labs 3 months. Recommended Mediterranean diet. Continue low carb, low sugar diet. Limit portion sizes. Exercise 5 days per week. Reduce lisinopril to 30 mg daily. Monitor blood pressure at home. Target less than 130/80. Continue sertraline for anxiety. Follow up in 3 months. Orders: Orders Liver Panel 3 Months E78.5 - Hyperlipidemia, unspecified, I10 - Essential (primary) hypertension, R73.01 - Impaired fasting glucose, R73.03 - Prediabetes, R74.8 - Abnormal levels of other serum enzymes Hemoglobin A1c 3 Months R73.9 - Hyperglycemia, unspecified TDaP Immunization Today Z23 - Encounter for immunization Lipid Panel 3 Months E78.5 - Hyperlipidemia, unspecified, I10 - Essential (primary) hypertension, R73.01 - Impaired fasting glucose, R73.03 - Prediabetes, R74.8 - Abnormal levels of other serum enzymes Complete Blood Count no Diff 3 Months E78.5 - Hyperlipidemia, unspecified, I10 - Essential (primary) hypertension, R73.01 - Impaired fasting glucose, R73.03 - Prediabetes, R74.8 - Abnormal levels of other serum enzymes Medications: New lisinopril 30 mg PO DAILY 90 tabs 0RF Discontinued lisinopril Discontinued Reason: Doctor's Order 40 mg PO DAILY 90 tabs 3RF
[2025-05-28 10:10] VITALS: BP 106/68; PULSE 70; RESP 14; TEMP 36.2; O2SAT 98; BMI 29.5
--- OUTSIDE RECORDS SUMMARY | 2025-05-28 11:46 | XMS_ITS | Data Portability ---
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 Plan of Treatment Reminders Order Date Submit Date Provider Last Modified By Organization Details Last Modified Time Details Appointments None recorde d. Lab STI panel 023 11/15/19 23 [email or web address] [facility], [address] [place] [address], [place], [address], 3 17:30:48 Referral None recorde d. Procedures None recorde d. Surgeries None recorde d. Imaging XR, hand, 3 or more view 023 11/15/19 23 [facility], [address] [place] [address], [address], 3 19:00:02 Medication Orders None recorde d. Patient TargetsNo targets recorded. Patient Instructions Encounter Date Encounter Id Patient Instructions Last Modified By Organization Details Last Modified Time 11/14/2022 [id number] hand sprain: car e instructions [email or web address] Not available 11/14/2022 17:36:01 hand bruises: care instructions [email or web address] Not available 11/14/2022 17:36:01 wrist sprain: care instructions [email or web address] Not available 11/14/2022 17:36:01 shoulder sprain: care instructions [email or web address] Not available 11/14/2022 17:36:01 sexually transmitted disease education [email or web address] Not available 11/14/2022 17:36:01 Your xray appear [...] Emergency Medical evaluation for any worsening symptoms. [email or web address] Not available 11/14/2022 17:36:00 Reason for Referral None Reported. Results Created Date Observation Date Name Description Value Unit Range Abnormal Flag Note LastModifiedBy Organization Detail LastModifiedTime 11/15/19 23 11/17/2022 CT, NG, TRICH VAG BY MARCOS chlamydia by MARCOS Negati ve negati ve Not Available [facility] ([facility]) [address] [place], [address], 11/17/2022 20:06:36 11/15/19 23 11/17/2022 CT, NG, TRICH VAG BY MARCOS gonococcus by MARCOS Negati ve negati ve Not Available [facility] ([facility]) [address] [place], [address], 11/17/2022 20:06:36 11/15/19 23 11/17/2022 CT, NG, TRICH VAG BY MARCOS trich vag by MARCOS Negati ve negati ve Not Available [facility] ([facility]) [address] [place], [address], 11/17/2022 20:06:36 11/15/19 23 11/16/2022 CT NG M GENIT ALIUM MARCOS, URINE mycoplasma genitalium MARCOS NEGATI VE negati ve Not Available [facility] ([facility]) [address] [place], [address], 11/17/2022 20:06:37 11/15/19 23 11/17/2022 CT NG M GENIT ALIUM MARCOS, URINE chlamydia trachomatis, MARCOS NEGATI VE negati ve Not Available [facility] ([facility]) [address], [place], [address], 11/17/2022 20:06:37 11/15/19 23 11/17/2022 CT NG M GENIT ALIUM MARCOS, URINE neisseria gonorrhoeae, MARCOS NEGATI VE negati ve Not Available [facility] ([facility]) [address], [place], [address], 11/17/2022 20:06:37 11/15/19 23 11/14/2022 XR, hand, 3 or more view No observ ation record ed. [email or web address] [facility] [address] [place], [address], 11/14/2022 19:18:57 Result Notes None recorded. Problems No Known Problems Medical Equipment None Reported. Allergies Allergen ID Allergen Name Allergen Category Reaction Reaction Severity Criticality Documentation Date Start Date Code Code System Note Provider Name and Address Organization Details Recorded Time 482282 cobalt environme nt Not available Not available Not available 11/14/2022 47450 00 RxNorm PEGGY Montes De Oca [facility] 3 15:21:01 Medications Name Sig Start [...] blood by Pulse oximetry Heart rate Systolic And Diastolic Provider Name and Address Organization Details Last Updated DateTime 3 167.64 cm 26.5 kg/m2 38751.1 5 g 8 18 /min 97.9 [degF] 96 % 96 % 63 /min 128/73 mm[Hg] Makenzie WOODS - [facility] 3 15:25:30 Social History Question Answer Notes LastModified by Organizat ion Details LastModified Time Tobacco Smoking Status Former Smoker last cigarette 4 weeks PEGGY Montes De [facility] 11/14/2022 15:23:24 Which Illicit Or Recreational Drugs Have You Used? Marijuana Information not available 11/14/2022 Have You Recently Traveled Abroad? No Information not available 11/14/2022 Sex: Unknown Functional Status Question Answer Note LastModified by Organizat ion Details LastModified Time How many times per week do you consume alcohol? 1-2 times per week Information not available 11/14/2022 Do you use any illicit or recreational drugs? Yes Information not available 11/14/2022 Do you or have you ever used any other forms of tobacco or nicotine? No Information not available 11/14/2022 What is your level of alcohol consumption? Occasional Information not available 11/14/2022 Mental Status None recorded. Family History Relationship [...] Diagnosis SNOMED-CT Code Diagnosis ICD10 Code Diagnosis IMO Codes Diagnosis Note [id number] [address] [address] [place] [phone] 09/09/2017 08:21:36 09/09/2017 09:04:03 [id number] [address] [facility] [address] [place] [phone] 04/03/2017 13:02:59 04/03/2017 14:24:24 [id number] [address] [address] [facility] [address] [facility] [address] [place] [phone] 11/14/2019 16:20:50 11/14/2019 17:01:52 [id number] _[facility] [address] [address] [place] [address] 09/25/2016 15:54:02 09/25/2016 17:40:28 [id number] Lynne Triana MD [address] [place] [address] 11/14/2022 13:39:54 11/14/2022 17:44:37 Pain of left hand [id number] 82837 M79.642 Venereal d isease screening [id number] Z11.3 Health Concerns Section Related Observation LastModified by Organization Detai ls LastModified Time None Recorded Concern Status LastModified by Organization Details LastModified Time None Recorded Advance Directives Directive None Recorded Payers Insurance Date Sequence Insurance Name Policy Number Policy Andujar Covered Member ID Andujar Member ID Guarantor Name 11/14/[address] [facility] Brodie Randall [id number] Brodie Randall Notes Date Note Type Note Provider Name and Address Organization Details Recorded Time 11/15/19 23 text/htm l Wrist / Hand InjuryReported by PatientHPIFor associated symptoms, patient reportspainandswellingbut reportsno redness,no ecchymosis, andno fever. For source of patient information, patient reportspatient arrived at urgent care ambulatory. For location, patient reportsleftandhand. For severity, patient reportsmoderate. For duration, patient reports4 days. For context, patient reportsfall. For aggravating factors, patient reportsgrippingandrom. For previous injury, patient reportsno prior injury to affected body part. For previous treatment, patient reportsnone. For prior imaging, patient reportsnone.57 year old male presenting for evaluation of [...] has no symptoms. Lynne Triana MD [address] [facility], [place], [address], [place] - [facility] 11/14/2022 17:40:41
== END 2025-05-28 11:02 | disposition home or self-care (01) ==
LOC: HO.HMCFM 09:56
PROVIDERS: PCP Physician Assistant Medical; Visit Provider Physician Assistant Medical
DX: I10 Essential (primary) hypertension (principal); E78.00 Pure hypercholesterolemia, unspecified; R73.03 Prediabetes; R74.8 Abnormal levels of other serum enzymes; D75.89 Other specified diseases of blood and blood-forming organs; Z23 Encounter for immunization

== ENCOUNTER → 2025-05-28 09:55 | Outpatient (BNVA) | payer OTHER, SELFPAY | PROVIDERS: PCP Physician Assistant Medical; Visit Provider Physician Assistant Medical | DX: I10 Essential (primary) hypertension (principal); Z23 Encounter for immunization; E78.00 Pure hypercholesterolemia, unspecified; R73.03 Prediabetes; R74.8 Abnormal levels of other serum enzymes; D75.89 Other specified diseases of blood and blood-forming organs; F41.9 Anxiety disorder, unspecified; Z79.899 Other long term (current) drug therapy | CPT/HCPCS: 90471; 90715 ==